=== PATIENT | female | born 2005 | race Caucasian/White ===

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

== ENCOUNTER 2023-05-09 12:46 | Emergency (ER) | payer OTHER ==
[~2023-05-09] VITALS: Ht 165.1 cm; Wt 90.7 kg
[~2023-05-09 12:46] MED LIST changes: +PREDNISONE20 M1 PO; +TYLENOL325 M1 PO; +ZITHROMAX250 MG PO
== END 2023-05-09 15:16 | disposition home or self-care (01) ==
LOC: ED 12:46
DX: J10.1 Influenza due to other identified influenza virus with other respiratory manifestations (principal); Z20.822 Contact with and (suspected) exposure to COVID-19; G43.909 Migraine, unspecified, not intractable, without status migrainosus; Z90.49 Acquired absence of other specified parts of digestive tract

== ENCOUNTER 2024-05-18 20:31 | Emergency (ER) | payer OTHER ==
[~2024-05-18] VITALS: Ht 165.1 cm; Wt 81.6 kg
[2024-05-18 21:17] LABS: BILIRUBIN Negative (Negative); BLOOD 3+ (Negative); CLARITY Cloudy (Clear); COLOR Yellow (Yellow); GLUCOSE Negative (Negative); KETONE Negative (Negative); LEUKO ESTERASE 2+ (Negative); NITRITE Negative (Negative); PH 5.5 (4.5-8.0); UROBILINOGEN 0.2 E.U./dl (0.0-1.0)
[2024-05-18 21:41] LABS: BACTERIA 2+; MUCOUS 1+
[2024-05-18] MEDS ORDERED: IOHEXOL 300 MG/ML 100 ML VIAL IV ONE (21:45)
[2024-05-18 22:31] LABS: BASO % 0.3 % (0.0-1.0); EOS # 0.1 10*3/uL (0.0-0.4); EOS % 0.7 % (1.0-4.0); HEMATOCRIT 42.1 % (37.0-47.0); MEAN CELL VOLUME 87.2 fl (81.0-99.0); MEAN CORPUSCULAR HGB 26.9 pg (27.0-31.0); MEAN CORPUSCULAR HGB CONC 30.9 g/dl (33.0-37.0); MEAN PLATELET VOLUME 10.1 fl (9.6-12.3); MONO # 0.5 10*3/uL (0.1-1.0); MONO % 5.9 % (3.0-9.0); NEUT # 5.7 10*3/uL (2.3-7.9); NEUT % 63.7 % (47.0-73.0); PLATELET COUNT AUTOMATED 339 10*3/uL (130-400); RED BLOOD COUNT 4.83 10*6/uL (4.10-5.10); RED CELL DISTRI WIDTH 13.4 % (0-14.5); WHITE BLOOD COUNT 8.9 10*3/uL (4.8-10.8)
[2024-05-18 22:52] LABS: ALKALINE PHOSPHATASE 69 U/L (46-116); BUN 9 mg/dl (9-23); CHLORIDE 105 mmol/L (98-107); SGPT/ALT 35 U/L (5-49); TOTAL PROTEIN 7.7 gm/dL (6.0-8.0)
[2024-05-18] MEDS ORDERED: Ketorolac Tromethamine 15 MG/ML VIAL IV ONE (23:00)
[2024-05-19] MEDS ORDERED: CIPRO500 MG PO (00:57)
[2024-05-19] MEDS ORDERED: Ciprofloxacin Hydrochloride 500 MG TAB PO ONE (01:00)
== END 2024-05-19 01:01 | disposition home or self-care (01) ==
LOC: ED 20:31
PROVIDERS: Emergency Medicine
DX: N94.6 Dysmenorrhea, unspecified (principal); N39.0 Urinary tract infection, site not specified; Z90.49 Acquired absence of other specified parts of digestive tract

== ENCOUNTER → 2024-05-21 | Outpatient (CLI) | payer OTHER ==
[~2024-05-21] MED LIST changes: +CIPRO500 MG PO
[2024-05-21 15:37] LABS: BASO % 0.3 % (0.0-1.0); EOS # 0.1 10*3/uL (0.0-0.4); EOS % 1.5 % (1.0-4.0); MEAN CELL VOLUME 87.2 fl (81.0-99.0); MEAN CORPUSCULAR HGB 27.3 pg (27.0-31.0); MEAN CORPUSCULAR HGB CONC 31.3 g/dl (33.0-37.0); MEAN PLATELET VOLUME 9.9 fl (9.6-12.3); MONO # 0.6 10*3/uL (0.1-1.0); MONO % 5.9 % (3.0-9.0); NEUT # 6.4 10*3/uL (2.3-7.9); NEUT % 68.3 % (47.0-73.0); PLATELET COUNT AUTOMATED 338 10*3/uL (130-400); RED BLOOD COUNT 4.47 10*6/uL (4.10-5.10); RED CELL DISTRI WIDTH 13.3 % (0-14.5); WHITE BLOOD COUNT 9.4 10*3/uL (4.8-10.8)
[2024-05-21 16:18] LABS: ALKALINE PHOSPHATASE 74 U/L (46-116); BUN 7 mg/dl (9-23); CHLORIDE 108 mmol/L (98-107); CHOLESTEROL 175 mg/dL (<200); FREE T4 1.11 ng/dl (0.89-1.76); LDL CHOLESTEROL 83 mg/dL (9-159); SGPT/ALT 26 U/L (5-49); TOTAL PROTEIN 7.4 gm/dL (6.0-8.0); TRIGLYCERIDES 252 mg/dl (<150)
[2024-05-21 16:31] LABS: BETA-HCG, QUANT < 3.0 mIU/mL (3-10)
[2024-05-26 03:06] LABS: TESTOS, FREE 0.4 pg/mL (0.0-4.2)
== END | disposition home or self-care (01) ==
LOC: RESCLI 14:03
PROVIDERS: Student in an Organized Health Care Education/Training Program; ATTEND Family Medicine
DX: N92.6 Irregular menstruation, unspecified (principal); K76.0 Fatty (change of) liver, not elsewhere classified; B37.41 Candidal cystitis and urethritis; E66.9 Obesity, unspecified; Z88.1 Allergy status to other antibiotic agents; Z98.890 Other specified postprocedural states

== ENCOUNTER → 2024-05-30 | Outpatient (CLI) | payer OTHER | END | disposition home or self-care (01) | LOC: US 12:52 | PROVIDERS: ATTEND Internal Medicine | DX: N88.8 Other specified noninflammatory disorders of cervix uteri (principal); N92.6 Irregular menstruation, unspecified ==

== ENCOUNTER 2024-10-25 13:46 | Emergency (ER) | payer OTHER ==
[~2024-10-25] VITALS: Ht 165.1 cm; Wt 72.6 kg
[2024-10-25] MEDS ORDERED: NEXTSTELLIS 3-1 EACH PO (15:37)
[2024-10-25] MEDS ORDERED: Ondansetron Hydrochloride 4 MG TAB PO ONE (15:40)
[2024-10-25] MEDS ORDERED: Ondansetron4 MG PO (16:10)
[2024-10-27] MEDS ORDERED: MACROBID100 M1 PO (20:23)
== END 2024-10-25 16:09 | disposition home or self-care (01) ==
LOC: ED 13:46
DX: K52.9 Noninfective gastroenteritis and colitis, unspecified (principal); R11.2 Nausea with vomiting, unspecified; Z90.49 Acquired absence of other specified parts of digestive tract; Z79.899 Other long term (current) drug therapy